=== PATIENT | female | born 1945 | race Caucasian/White ===

== ENCOUNTER → 2016-05-21 | Outpatient (CLI) | payer OTHER ==
--- NOTE | 2016-05-21 09:16 | KCIC ---
EXAM: Bilateral digital screening mammogram. HISTORY: 70-year-old female presents for screening mammography. COMPARISON: 05/18/2014, 02/24/2012, 02/12/2012, 02/04/2011 TECHNIQUE: Full field digital craniocaudal and mediolateral oblique views of both breasts are obtained. Computer-aided detection is applied. FINDINGS: Breast parenchymal composition: Level C - Heterogeneously dense. There is no new suspicious mass, calcification or architectural distortion within either breast. IMPRESSION: BI-RADS Category 2: Benign findings. Annual mammography is recommended. This study was interpreted with the benefit of Computerized Aided Detection (CAD). Mammography is not 100% sensitive in detecting breast cancer. Therefore, a self breast exam and a clinical breast exam are very important. A negative mammogram does not negate a clinically suspicious finding and should not result in a delay in biopsying a clinically suspicious abnormality. The patient information was entered into the reminder system with a target due date of February 24, 2013. Electronically signed by: Sarai Fernandez (May 21, 2016 09:14:02)
== END | disposition home or self-care (01) ==
LOC: KCIC MAMMO 07:50
DX: Z12.31 Encounter for screening mammogram for malignant neoplasm of breast (principal)
CPT/HCPCS: G0202; 77067

== ENCOUNTER → 2016-06-25 | Outpatient (CLI) | payer OTHER ==
--- NOTE | 2016-06-25 12:29 | KCIC ---
PROCEDURE Bone mineral density exam HISTORY Loss of height, osteopenia, postmenopausal COMPARISON 02/12/2012 FINDINGS Bone mineral density examination utilizing DEXA was performed. Left hip bone mineral density was 0.661 grams/centimeter squared which corresponds with T-score-2.3 and a Z-score-0.8. Lumbar spine bone mineral density was 1.003 grams/centimeter squared which corresponds with T-score-0.4 and a Z-score of 1.7. Comparing the lumbar spine with the previous exam, there has been-3.6 percent decrease. Comparing the left hip, there has been-3.1 percent decrease. World Health Organization criteria for bone mineral density interpretation: Normal T-score greater than or equal to-1.0, Osteopenia T score between-1.0 and-2.5, Osteoporosis T-score less than or equal to-2.5. IMPRESSION 1. There is osteopenia of the left hip. 2. Bone mineral density of the lumbar spine is considered within normal limits although likely artificially elevated due to presence of degenerative change, scoliosis also noted. Electronically signed by: Antonino Lynch MD (Jun 25, 2016 12:28:18)
== END | disposition home or self-care (01) ==
LOC: KCIC DEXA 08:56
PROVIDERS: ATTEND Obstetrics & Gynecology
DX: M85.88 Other specified disorders of bone density and structure, other site (principal); R29.890 Loss of height
CPT/HCPCS: 77080

== ENCOUNTER → 2017-07-01 | Outpatient (CLI) | payer OTHER | END | disposition home or self-care (01) | LOC: KCIC MAMMO 08:19 | DX: Z12.31 Encounter for screening mammogram for malignant neoplasm of breast (principal) | CPT/HCPCS: 77063; 77067 ==

== ENCOUNTER → 2018-07-08 | Outpatient (CLI) | payer OTHER ==
--- NOTE | 2018-07-08 18:42 | KCIC ---
Bilateral digital screening mammograms with 3-D tomosynthesis: Reason for examination: Routine screening. Comparison is made to previous studies dated 07/01/2017 and 05/21/2016. Bilateral mammograms in CC and oblique projections were obtained with 2-D imaging and 3-D tomosynthesis imaging on a Siemens Inspiration unit and reviewed on the workstation. Interpretation was made with the benefit of CAD. The skin and nipples show no abnormalities. No abnormal axillary lymph nodes are seen. The breast parenchyma is heterogeneously dense. (Breast density: Category C.) There are no dominant masses, suspicious calcifications or architectural distortion. Benign calcifications are present. Impression: No evidence of malignancy. Recommend routine screening. Your patient's mammogram demonstrates that she has dense breast tissue (breast density category C or D), which could hide abnormalities, and if she has other risk factors for breast cancer that have been identified, she might benefit from supplemental screening tests that may be suggested by you as her ordering physician. Dense breast tissue, in and of itself, is a relatively common condition. Therefore, this information is not provided to cause undue concern, but rather to raise your awareness and to promote discussion with your patient regarding the presence of other risk factors, in addition to dense breast tissue. Your patient's mammography results will be sent to her. BI-RAD Category 2: Benign. "Our facility is accredited by the [employer] Mammography Program." This patient's information has been entered into a reminder system for the patient to be notified with the results of her examination and a target date for the next mammogram. Electronically signed by: Stephani Guido MD (07/08/2018 6:40 PM) [id number]
== END | disposition home or self-care (01) ==
LOC: KCIC MAMMO 08:22
DX: Z12.31 Encounter for screening mammogram for malignant neoplasm of breast (principal); R92.8 Other abnormal and inconclusive findings on diagnostic imaging of breast
CPT/HCPCS: 77063; 77067